=== PATIENT | female | born 1950 | race Caucasian/White ===

== ENCOUNTER 2023-01-08 10:12 | Observation (INO) | payer OTHER, MEDICAID ==
[2023-01-08] MEDS ORDERED: Ondansetron PF 4 MG/2 ML Vial ONE (12:03)
[2023-01-08] MEDS ORDERED: Morphine 4 MG/ML VIAL ONE (12:03)
[2023-01-08 12:30] LABS: #Eosinphils 0.3 thou/uL (0.0-0.7); #Monocytes 0.7 thou/uL (0.11-0.59); #Neutrophils 3.7 thou/uL (1.40-6.50); %Basophils 0.3 % (0.0-1.0); %Eosinophils 3.5 % (0.0-10.0); %Lymphocytes 39.7 % (21.0-51.0); %Neutrophils 47.1 % (42.0-75.0); Hemoglobin 11.6 g/dL (12.0-16.0); Mean Corpuscular HGB CONC 33.1 g/dL (32.0-36.0); Mean Corpuscular Hemoglobin 31.8 pg (27.0-31.0); Mean Corpuscular Volume 95.9 fl (78.0-98.0); Mean Platelet Volume 10.7 fL (7.4-10.4); Platelet Count 328 10x3/uL (130-400); RBC Distribution Width 15.6 % (11.5-14.5); Red Blood Cell (RBC) Count 3.65 mill/uL (4.20-5.40); White Blood Cell (WBC) Count 7.9 10x3/uL (4.8-10.8)
[2023-01-08 12:38] LABS: Bacteria/HPF 3+ HPF (None Seen); Bilirubin Negative (Negative); Blood, Urine Negative (Negative); CAUTI Indications for Culture Dysuria,urgency,freq; Calcium Oxalate Crystals 1+ HPF (None Seen); Clarity Turbid (Clear); Glucose, Urine (Dipstick) Normal (Negative); Ketone, Urine Negative (Negative); Leukocyte 250 Leu/uL (Negative); Nitrite Negative (Negative); Protein, Urine (Dipstick) 200 mg/dL (Neg-Trace); Squamous Epithelial 0-3 HPF (0-3); Urobilinogen Normal mg/dL (Less than 2); WBC/HPF 21-50 HPF (0-3)
[2023-01-08 12:42] LABS: Urine Culture Reflex Yes Yes
[2023-01-08 12:54] LABS: ALT (SGPT) 11 U/L (8-55); AST (SGOT) 18 U/L (5-34); Albumin 3.8 g/dL (3.4-4.8); Alkaline Phosphatase 63 U/L (40-110); Anion Gap 15 mmol/L (10-20); BUN (Urea Nitrogen) 10 mg/dL (9.8-20.1); Bilirubin, Total 0.3 mg/dL (0.2-1.2); CK (CPK) 39 U/L (29-168); Calc. Creatinine Clearance 0 mL/min (70-130); Calcium 11.6 mg/dL (7.8-10.44); Carbon Dioxide 24 mmol/L (23-31); Chloride 104 mmol/L (98-107); Estimated GFR 90; Glucose 102 mg/dL (83-110); Lipase 7 U/L (8-78); Potassium 3.9 mmol/L (3.5-5.1); Protein, Total 5.8 g/dL (5.8-8.1); Sodium 139 mmol/L (136-145)
[2023-01-08] MEDS ORDERED: cefTRIAXone (ROCEPHIN) 1 GM VIAL ONE (13:13)
[2023-01-08 17:15] VITALS: BMI 21.2
[2023-01-08] MEDS ORDERED: Ondansetron ODT 4 MG TAB SL PRN (17:30)
[2023-01-08] MEDS ORDERED: Ondansetron PF 4 MG/2 ML Vial IVP PRN (17:30)
[2023-01-08] MEDS: Sodium Chloride 0.9% 1,000 ML IV SCH (17:36)
[2023-01-08] MEDS ORDERED: Acetaminophen 650 MG Suppository PR PRN (17:41)
[2023-01-08] MEDS ORDERED: Artificial Tear Sol 15 ML BOT EA EYE PRN (17:41)
[2023-01-08] MEDS ORDERED: Moisturizing Cream (Eucerin) 113 GM JAR TOP PRN (17:41)
[2023-01-08] MEDS ORDERED: Electrolyte Replacement Protocol FS SCH (17:45)
[2023-01-08] MEDS ORDERED: cefTRIAXone\\ROCEPHIN 1 GM in Sodium Chloride 0.9% 100 ML IVPB SCH (18:00)
[2023-01-08 19:17] LABS: Magnesium 1.2 mg/dL (1.6-2.6); Phosphorus 3.3 mg/dL (2.3-4.7)
[2023-01-08] MEDS ORDERED: Cholecalciferol 1,000 UNITS (25 MCG) TAB PO SCH (21:00)
[2023-01-08] MEDS: Acetaminophen 325 MG TAB PO PRN (21:39)
[2023-01-09] MEDS: Acetaminophen 325 MG TAB PO PRN (04:41)
[2023-01-09] MEDS: Sodium Chloride 0.9% 1,000 ML IV SCH (04:42)
[2023-01-09 07:13] LABS: Iron 43 ug/dL (50-170); Iron Binding Capacity, Total 239 mcg/dL (265-497)
[2023-01-09 07:24] LABS: ALT (SGPT) 9 U/L (8-55); AST (SGOT) 20 U/L (5-34); Albumin 3.4 g/dL (3.4-4.8); Alkaline Phosphatase 55 U/L (40-110); Anion Gap 14 mmol/L (10-20); BUN (Urea Nitrogen) 8 mg/dL (9.8-20.1); Bilirubin, Total 0.3 mg/dL (0.2-1.2); Calc. Creatinine Clearance 63 mL/min (70-130); Calcium 10.7 mg/dL (7.8-10.44); Carbon Dioxide 25 mmol/L (23-31); Chloride 106 mmol/L (98-107); Estimated GFR 90; Globulin 2.2 g/dL (2.4-3.5); Glucose 97 mg/dL (83-110); Iron 39 ug/dL (50-170); Iron Binding Capacity, Total 245 mcg/dL (265-497); Potassium 3.8 mmol/L (3.5-5.1); Protein, Total 5.6 g/dL (5.8-8.1); Sodium 141 mmol/L (136-145)
[2023-01-09] MEDS ORDERED: Magnesium Sulfate In Water 4 GM in Premix Bag 1 BAG IVPB SCH (08:00)
[2023-01-09 10:01] LABS: Magnesium 1.2 mg/dL (1.6-2.6)
[2023-01-09 15:48] VITALS: BP 100/64; TEMP 97.8
[2023-01-09] MEDS ORDERED: Cefdinir 300 MG CAP PO SCH (21:00)
== END 2023-01-09 18:17 | disposition home or self-care (01) ==
LOC: ERS 10:12 → ERHOLD 14:30 → T4-A 16:54
PROVIDERS: ADMIT Family Medicine; ATTEND Emergency Medicine
DX: R53.1 Weakness (principal); E83.52 Hypercalcemia; D64.9 Anemia, unspecified
CPT/HCPCS: 71045; 72131; 74246; 80053; 81001; 82550; 83540; 83550; 83605; 83690; 83735 ×2; 83880; 83970; 84100; 84484; 87040; 87077; 87086; 87186; 93005; 96365; 96372 ×2; 96375 ×2; 96376; 99285; G0378 ×3; J3475; 36415; 84443; 85025; J0696; J1650; J2270; J2405; J3490; J7050

== ENCOUNTER → 2023-01-30 | Day surgery (SDC) | payer OTHER, MEDICAID ==
[2023-01-30 08:48] LABS: PTT 24.8 sec (22.9-36.1); Prothrombin Time 13.5 sec (12.0-14.7)
[2023-01-30 11:41] VITALS: BP 120/72; TEMP 97.4
[2023-02-09 11:23] LABS: Reference Lab Name NEO
== END ==
LOC: CT 08:10
PROVIDERS: ATTEND Internal Medicine
DX: C90.00 Multiple myeloma not having achieved remission (principal); C90.21 Extramedullary plasmacytoma in remission
CPT/HCPCS: 20225; 77002; 85097; 85610; 85730; 88184; 88237; 88264; 88280; 88305; 88311; 88313

== ENCOUNTER 2023-02-20 08:12 | Inpatient (IN) | payer OTHER, MEDICAID ==
[2023-02-20] MEDS ORDERED: NOREPINEPHRINE 8 MG/250 ML-D5W 250 ML ONE (08:15)
[2023-02-20] MEDS ORDERED: Rocuronium Bromide 10 MG/ML (10ML VIAL) ONE (08:19)
[2023-02-20 08:33] LABS: Hematocrit 29.5 % (36.0-47.0); Hemoglobin 8.8 g/dL (12.0-16.0); Mean Corpuscular HGB CONC 29.8 g/dL (32.0-36.0); Mean Corpuscular Volume 103.9 fl (78.0-98.0); Mean Platelet Volume 11.3 fL (7.4-10.4); Platelet Count 262 10x3/uL (130-400); RBC Distribution Width 15.1 % (11.5-14.5); Red Blood Cell (RBC) Count 2.84 mill/uL (4.20-5.40); White Blood Cell (WBC) Count 18.6 10x3/uL (4.8-10.8)
[2023-02-20 08:34] LABS: Delete Auto Diff?? YES; Manual Diff?? YES
[2023-02-20] MEDS ORDERED: ALTEPLASE 50 MG/50 ML VIAL ONE (08:40)
[2023-02-20] MEDS ORDERED: Heparin 25,000 units/D5W 500 ML ONE (08:59)
[2023-02-20 09:01] LABS: INR-International Normal Ratio 1.5; Prothrombin Time 18.9 sec (12.0-14.7)
[2023-02-20 09:02] LABS: PTT 29.3 sec (22.9-36.1)
[2023-02-20 09:03] LABS: ALT (SGPT) 26 U/L (8-55); AST (SGOT) 45 U/L (5-34); Albumin 2.4 g/dL (3.4-4.8); Alkaline Phosphatase 54 U/L (40-110); Anion Gap 26 mmol/L (10-20); BUN (Urea Nitrogen) 50 mg/dL (9.8-20.1); Bilirubin, Total 0.3 mg/dL (0.2-1.2); Calc. Creatinine Clearance 0 mL/min (70-130); Calcium 9.5 mg/dL (7.8-10.44); Carbon Dioxide 10 mmol/L (23-31); Chloride 104 mmol/L (98-107); Estimated GFR 20; Globulin 1.9 g/dL (2.4-3.5); Glucose 209 mg/dL (83-110); Protein, Total 4.3 g/dL (5.8-8.1); Sodium 136 mmol/L (136-145)
[2023-02-20 09:15] LABS: Analyzer IN Cardio ER; Calcium, Ionized (venous) 1.11 mmol/L (1.16-1.32); Chloride (VBG) 108 mmol/L (98-106); Hematocrit-VBG 24 % (36.0-47.0); Hemoglobin (Hb) 8.2 g/dL (11.7-16.1); Potassium (VBG) 3.12 mmol/L (3.70-5.30); Sodium 133.4 mmol/L (133-146)
[2023-02-20] MEDS ORDERED: Iopamidol-370 76% 500 ML MDV (1 ML CHARGE) ONE (09:27)
[2023-02-20] MEDS ORDERED: Sodium Chloride 0.9% 100 ML ONE (09:42)
[2023-02-20] MEDS ORDERED: cefTRIAXone (ROCEPHIN) 1 GM VIAL ONE (09:42)
[2023-02-20 09:48] LABS: Bilirubin Negative (Negative); Blood, Urine 2+ (Negative); CAUTI Indications for Culture Urological Procedure; Clarity Turbid (Clear); Glucose, Urine (Dipstick) Normal (Negative); Ketone, Urine Negative (Negative); Leukocyte Negative Leu/uL (Negative); Nitrite Negative (Negative); Protein, Urine (Dipstick) 200 mg/dL (Neg-Trace); Specific Gravity, Urine 1.018 (1.002-1.036); Urobilinogen Normal mg/dL (Less than 2); WBC/HPF 0-3 HPF (0-3); pH, Urine 5.5 (5.0-9.0)
[2023-02-20 09:51] LABS: Bacteria/HPF 2+ HPF (None Seen)
[2023-02-20 09:53] LABS: Urine Culture Reflex Yes Yes
[2023-02-20 10:05] LABS: Band 13 % (5-11); Hypochromia SLIGHT = 6-15 cells (100X) (0-5/hpf); Lymphocytes 65 % (21-51); Macrocytosis SLIGHT = 6-15 cells (100X) (0-5/hpf); Neutrophil 22 % (42-75); Polychromasia SLIGHT = 2-3 cells (100X) (0-2/hpf)
[2023-02-20 10:06] LABS: Platelet Adequacy Comment Appears Adequate
[2023-02-20] MEDS ORDERED: Pantoprazole 40 MG VIAL ONE (10:07)
[2023-02-20] MEDS ORDERED: Glucagon 1 MG/ML KIT IM PRN (10:12)
[2023-02-20] MEDS ORDERED: HumaLOG 300 UNITS/3 ML VIAL SC PRN ×2 (10:12)
[2023-02-20] MEDS ORDERED: Electrolyte Replacement Protocol 1 EACH IVPB ONE (10:12)
[2023-02-20] MEDS ORDERED: Dextrose 5% in Water 1,000 ML IV PRN (10:12)
[2023-02-20] MEDS ORDERED: Dextrose 50% Abboject 50 ML SYRINGE SLOW IVP PRN (10:12)
[2023-02-20] MEDS ORDERED: Acetaminophen 650 MG Suppository PR PRN ×2 (10:12)
[2023-02-20] MEDS ORDERED: Communication Order-Pharmacy FS ONE (10:12)
[2023-02-20] MEDS ORDERED: Ventilator Sedation Protocol 1 EACH FS SCH (10:15)
[2023-02-20] MEDS ORDERED: Heparin 25,000 units/D5W 500 ML IVPB SCH (10:15)
[2023-02-20] MEDS ORDERED: Heparin 10,000 UNITS/ 10 ML VIAL SLOW IVP SCH (10:15)
[2023-02-20] MEDS ORDERED: Sodium Bicarbonate 150 MEQ in Dextrose 5% in Water 1,000 ML IV SCH ×3 (10:30→20:15)
[2023-02-20 11:00] LABS: Hematocrit 31.4 % (36.0-47.0); Hemoglobin 9.5 g/dL (12.0-16.0); Platelet Count 291 10x3/uL (130-400)
[2023-02-20 11:12] LABS: SARS-CoV-2 NAA Rapid Test DETECTED (NotDetected)
[2023-02-20] MEDS ORDERED: Morphine 2 MG/ML VIAL SLOW IVP PRN (11:30)
[2023-02-20] MEDS ORDERED: Fentanyl CADD 100 ML IV SCH (11:30)
[2023-02-20] MEDS ORDERED: Fentanyl BOLUS 250 ML IVPB PRN (11:30)
[2023-02-20] MEDS ORDERED: Propofol 1,000 MG/100 ML VIAL IV PRN (11:30)
[2023-02-20] MEDS ORDERED: Propofol BOLUS 1,000 MG/100 ML VIAL IV PRN (11:30)
[2023-02-20] MEDS ORDERED: Lorazepam 2 MG/ML VIAL SLOW IVP PRN (11:30)
[2023-02-20 11:40] LABS: Lactic Acid 10.6 mmol/L (0.5-2.2)
[2023-02-20] MEDS ORDERED: Vecuronium 10 MG VIAL IV PRN (11:47)
[2023-02-20 11:48] LABS: Troponin I 1.162 ng/mL (< 0.028)
[2023-02-20 11:52] LABS: Carbon Dioxide 12 mmol/L (23-31); Chloride 103 mmol/L (98-107); Potassium 3.9 mmol/L (3.5-5.1); Sodium 134 mmol/L (136-145)
[2023-02-20 11:53] LABS: Anion Gap 23 mmol/L (10-20); BUN (Urea Nitrogen) 51 mg/dL (9.8-20.1); Calc. Creatinine Clearance 0 mL/min (70-130); Calcium 9.9 mg/dL (7.6-10.4); Estimated GFR 18; Glucose 143 mg/dL (83-110); Magnesium 1.3 mg/dL (1.6-2.6); Phosphorus 5.4 mg/dL (2.3-4.7)
[2023-02-20] MEDS ORDERED: Fentanyl CADD 100 ML ONE (12:14)
[2023-02-20 12:56] LABS: D-Dimer Test Greater than 20.00 *mcg/mL (0.27-0.43); INR-International Normal Ratio 1.3; PTT 35.3 sec (22.9-36.1); Protein C Activity 120 % (78-152); Prothrombin Time 16.4 sec (12.0-14.7)
[2023-02-20 13:18] LABS: Base Excess (BEa) -6.8 mEq/L (-2.0 to +3.0); Calcium, Ionized (arterial) 1.24 mmol/L (1.12-1.30); Carboxyhemoglobin (COHb) 0.9 gm% (0.0-3.0); Hematocrit-ABG 31 % (36.0-47.0); Hemoglobin (Hb) 10.7 g/dL (12.0-16.0); O2 Tension (PaO2), arterial 175.8 mmHg (> 70.0); Potassium - ABG Lab 4.08 mmol/L (3.70-5.30); pH, Arterial 7.434 (7.35-7.45)
[2023-02-20 13:21] LABS: CO2 Tension 24.4 mmHg (35.0-45.0); Puncture Site RRA
[2023-02-20] MEDS: Sodium Bicarbonate 150 MEQ in Dextrose 5% in Water 1,000 ML IV SCH ×2 (13:55→18:33)
[2023-02-20 15:57] LABS: Troponin I 4.932 ng/mL (< 0.028)
[2023-02-20 16:13] LABS: Strep pneumo Urine Ag NEGATIVE (NEGATIVE)
[2023-02-20 17:37] LABS: Hematocrit 31.5 % (36.0-47.0); Hemoglobin 9.8 g/dL (12.0-16.0); Platelet Count 275 10x3/uL (130-400)
[2023-02-20 18:04] LABS: Anion Gap 25 mmol/L (10-20); BUN (Urea Nitrogen) 52 mg/dL (9.8-20.1); Calc. Creatinine Clearance 16 mL/min (70-130); Calcium 9.6 mg/dL (7.8-10.44); Carbon Dioxide 14 mmol/L (23-31); Chloride 98 mmol/L (98-107); Estimated GFR 18; Glucose 184 mg/dL (83-110); Potassium 4.6 mmol/L (3.5-5.1); Sodium 132 mmol/L (136-145)
[2023-02-20 19:45] LABS: Troponin I 6.728 ng/mL (< 0.028)
[2023-02-20] MEDS ORDERED: Sodium Bicarb 50 MEQ/50 ML Abboject 8.4% SYRINGE IVP SCH (20:15)
[2023-02-20] MEDS: Pantoprazole 40 MG VIAL IVP SCH (20:34)
[2023-02-20] MEDS: NOREPINEPHRINE 8 MG/250 ML-D5W 250 ML IVPB PRN (20:57)
[2023-02-20] MEDS ORDERED: Lactated Ringer's 500 ML IV SCH (21:00)
[2023-02-20] MEDS: Albumin 25% 25 GM/100 ML BOT IVPB SCH (21:19)
[2023-02-20] MEDS ORDERED: Hydrocortisone Sod Succ/PF 100 mg/2 ml Vial IVP SCH (23:00)
[2023-02-20 23:13] LABS: Hematocrit 25.6 % (36.0-47.0); Hemoglobin 8.3 g/dL (12.0-16.0); Mean Corpuscular HGB CONC 32.4 g/dL (32.0-36.0); Mean Corpuscular Hemoglobin 31.1 pg (27.0-31.0); Mean Platelet Volume 10.9 fL (7.4-10.4); Platelet Count 268 10x3/uL (130-400); RBC Distribution Width 15.4 % (11.5-14.5); Red Blood Cell (RBC) Count 2.67 mill/uL (4.20-5.40); White Blood Cell (WBC) Count 7.6 10x3/uL (4.8-10.8)
[2023-02-20 23:36] LABS: Anion Gap 30 mmol/L (10-20); BUN (Urea Nitrogen) 52 mg/dL (9.8-20.1); Calc. Creatinine Clearance 15 mL/min (70-130); Carbon Dioxide 14 mmol/L (23-31); Chloride 94 mmol/L (98-107); Estimated GFR 17; Glucose 128 mg/dL (83-110); Potassium 4.5 mmol/L (3.5-5.1); Sodium 133 mmol/L (136-145)
[2023-02-20 23:39] LABS: Mean Corpuscular Volume 95.9 fl (78.0-98.0)
[2023-02-20 23:49] LABS: Lactic Acid 15.2 mmol/L (0.5-2.2)
[2023-02-20 23:50] LABS: Troponin I 14.579 ng/mL (< 0.028)
[2023-02-20 23:57] LABS: PTT Greater than 250.0 sec (22.9-36.1)
[2023-02-21] MEDS ORDERED: Lactated Ringer's 1,000 ML IV SCH (00:15)
[2023-02-21] MEDS: NOREPINEPHRINE 8 MG/250 ML-D5W 250 ML IVPB PRN ×4 (01:02→12:11)
[2023-02-21 02:21] LABS: Hemoglobin 7.8 g/dL (12.0-16.0); Platelet Count 237 10x3/uL (130-400)
[2023-02-21 02:45] LABS: PTT 143.7 sec (22.9-36.1)
[2023-02-21] MEDS: Albumin 25% 25 GM/100 ML BOT IVPB SCH ×2 (02:58→11:17)
[2023-02-21] MEDS: Vasopressin 20 UNITS in Sodium Chloride 0.9% 50 ML IV PRN ×2 (04:23→07:45)
[2023-02-21 04:41] LABS: Hematocrit 25.2 % (36.0-47.0); Hemoglobin 7.9 g/dL (12.0-16.0); Mean Corpuscular HGB CONC 31.3 g/dL (32.0-36.0); Mean Corpuscular Hemoglobin 31.5 pg (27.0-31.0); Mean Platelet Volume 11.3 fL (7.4-10.4); Platelet Count 220 10x3/uL (130-400); RBC Distribution Width 15.9 % (11.5-14.5); Red Blood Cell (RBC) Count 2.51 mill/uL (4.20-5.40); White Blood Cell (WBC) Count 10.4 10x3/uL (4.8-10.8)
[2023-02-21 04:42] LABS: Mean Corpuscular Volume 100.4 fl (78.0-98.0)
[2023-02-21 04:43] LABS: Delete Auto Diff?? YES; Prothrombin Time 23.6 sec (12.0-14.7)
[2023-02-21 04:59] LABS: ALT (SGPT) 221 U/L (8-55); AST (SGOT) 544 U/L (5-34); Albumin 2.8 g/dL (3.4-4.8); Alkaline Phosphatase 46 U/L (40-110); Anion Gap 33 mmol/L (10-20); BUN (Urea Nitrogen) 50 mg/dL (9.8-20.1); Bilirubin, Total 0.5 mg/dL (0.2-1.2); Calc. Creatinine Clearance 14 mL/min (70-130); Calcium 8.8 mg/dL (7.8-10.44); Carbon Dioxide 13 mmol/L (23-31); Chloride 91 mmol/L (98-107); Estimated GFR 16; Globulin 1.7 g/dL (2.4-3.5); Glucose 123 mg/dL (83-110); Potassium 4.9 mmol/L (3.5-5.1); Protein, Total 4.5 g/dL (5.8-8.1); Sodium 132 mmol/L (136-145)
[2023-02-21 05:09] LABS: Lactic Acid 19.2 mmol/L (0.5-2.2)
[2023-02-21] MEDS ORDERED: Sodium Bicarb 50 MEQ/50 ML VIAL IVP SCH (05:15)
[2023-02-21] MEDS ORDERED: Piperacillin/Tazobactam 3.375 GM in Sodium Chloride 0.9% 100 ML IVPB SCH ×2 (05:30→10:00)
[2023-02-21] MEDS ORDERED: Hydrocortisone Sod Succ/PF 100 mg/2 ml Vial IVP SCH (06:00)
[2023-02-21 06:14] LABS: Hematocrit 23.2 % (36.0-47.0); Hemoglobin 7.2 g/dL (12.0-16.0); Platelet Count 180 10x3/uL (130-400)
[2023-02-21] MEDS ORDERED: EPINEPHrine 1 MG/10 ML Abboject SYRINGE ONE ×2 (06:17→06:21)
[2023-02-21 06:25] LABS: O2 Tension (PaO2), arterial 161.1 mmHg (> 70.0); pH, Arterial 7.209 (7.35-7.45)
[2023-02-21 06:26] LABS: Base Excess (BEa) -16.7 mEq/L (-2.0 to +3.0)
[2023-02-21 06:27] LABS: Carboxyhemoglobin (COHb) 1.3 gm% (0.0-3.0); Hematocrit-ABG 25 % (36.0-47.0); Hemoglobin (Hb) 8.6 g/dL (12.0-16.0)
[2023-02-21 06:29] LABS: Calcium, Ionized (arterial) 1.07 mmol/L (1.12-1.30); Potassium - ABG Lab 5.18 mmol/L (3.70-5.30); Puncture Site RRA
[2023-02-21] MEDS ORDERED: EPINEPHrine 4 MG in Dextrose 5% in Water 250 ML IVP SCH (07:30)
[2023-02-21] MEDS ORDERED: Vasopressin 20 UNITS, Admixture Fee 1 EACH in Sodium Chloride 0.9% 50 ML IV SCH (07:45)
[2023-02-21 08:05] LABS: Base Excess (BEa) -17.8 mEq/L (-2.0 to +3.0); Carboxyhemoglobin (COHb) 1.5 gm% (0.0-3.0); Hematocrit-ABG 23 % (36.0-47.0); Hemoglobin (Hb) 7.9 g/dL (12.0-16.0); O2 Tension (PaO2), arterial 383.7 mmHg (> 70.0); Potassium - ABG Lab 5.41 mmol/L (3.70-5.30)
[2023-02-21 08:08] LABS: Actual Bicarbonate (HCO3a) 8.6 mEq/L (22-28); CO2 Tension 22.4 mmHg (35.0-45.0); pH, Arterial 7.202 (7.35-7.45)
[2023-02-21 08:09] LABS: Puncture Site Arterial Line
[2023-02-21] MEDS ORDERED: VANCOMYCIN IVPB PRN (08:20)
[2023-02-21] MEDS ORDERED: Milrinone Lactate/D5W 20 MG in Premix Bag 1 BAG IVPB SCH (08:30)
[2023-02-21] MEDS ORDERED: Sodium Bicarbonate 140 MEQ in Dextrose 5% in Water 1,000 ML IV SCH ×2 (08:30→10:00)
[2023-02-21] MEDS ORDERED: VANCOMYCIN 1.25 GM/250 ML BAG 1.25 GM in Premix Bag 1 BAG IVPB SCH (08:45)
[2023-02-21] MEDS ORDERED: Vancomycin Dose by Levels Sliding Scale (Wt <71) FS SCH (08:45)
[2023-02-21] MEDS ORDERED: valACYclovir 500 MG TAB PO SCH (09:00)
[2023-02-21] MEDS ORDERED: cefTRIAXone\\ROCEPHIN 2 GM in Sodium Chloride 0.9% 100 ML IVPB SCH (09:00)
[2023-02-21 10:19] VITALS: BP 84/56
[2023-02-21] MEDS: Pantoprazole 40 MG VIAL IVP SCH (11:16)
[2023-02-21 11:42] LABS: CO2 Tension 24.8 mmHg (35.0-45.0)
[2023-02-21 11:43] LABS: Actual Bicarbonate (HCO3a) 9.7 mEq/L (22-28)
[2023-02-21 11:47] LABS: Actual Bicarbonate (HCO3v) 8.5 mEq/L (22-28); pH (venous) 7.018 (7.32-7.43)
[2023-02-21 12:48] VITALS: TEMP 97.5
[2023-02-21 13:13] LABS: Cardiolipin IgA Ab 0.6 APL-U/mL (<14 Negative); Cardiolipin IgG Ab 0.9 GPL-U/mL (<10 Negative); Cardiolipin IgM Ab Less than 0.9 MPL-U/mL (<10 Negative); EliA APS New Method **** NEW METHOD ****
[2023-02-21 13:26] VITALS: BMI 21.8
[2023-02-21 13:59] LABS: PTT Greater than 250.0 sec (22.9-36.1)
== END 2023-02-21 17:47 | disposition expired | DRG 871 ==
LOC: ERS 08:12 → CCU 09:59
PROVIDERS: ADMIT Family Medicine; ATTEND Family Medicine
PROC: 5A1935Z Respiratory Ventilation, Less than 24 Consecutive Hours (ICD-10-PCS; principal; 2023-02-20)
PROC: 5A12012 Performance of Cardiac Output, Single, Manual (ICD-10-PCS; 2023-02-20)
PROC: 0BH17EZ Insertion of Endotracheal Airway into Trachea, Via Natural or Artificial Opening (ICD-10-PCS; 2023-02-20)
PROC: 02HV33Z Insertion of Infusion Device into Superior Vena Cava, Percutaneous Approach (ICD-10-PCS; 2023-02-20)
PROC: B5181ZA Fluoroscopy of Superior Vena Cava using Low Osmolar Contrast, Guidance (ICD-10-PCS; 2023-02-20)
PROC: 8E0ZXY6 Isolation (ICD-10-PCS; 2023-02-20)
PROC: 0DH67UZ Insertion of Feeding Device into Stomach, Via Natural or Artificial Opening (ICD-10-PCS; 2023-02-20)
PROC: 4A043R1 Measurement of Venous Saturation, Peripheral, Percutaneous Approach (ICD-10-PCS; 2023-02-20)
PROC: 4A133R1 Monitoring of Arterial Saturation, Peripheral, Percutaneous Approach (ICD-10-PCS; 2023-02-20)
PROC: 3E0G76Z Introduction of Nutritional Substance into Upper GI, Via Natural or Artificial Opening (ICD-10-PCS; 2023-02-20)
PROC: 3E043XZ Introduction of Vasopressor into Central Vein, Percutaneous Approach (ICD-10-PCS; 2023-02-20)
PROC: 03HY32Z Insertion of Monitoring Device into Upper Artery, Percutaneous Approach (ICD-10-PCS; 2023-02-20)
PROC: 0T9B70Z Drainage of Bladder with Drainage Device, Via Natural or Artificial Opening (ICD-10-PCS; 2023-02-20)
PROC: 30233J1 Transfusion of Nonautologous Serum Albumin into Peripheral Vein, Percutaneous Approach (ICD-10-PCS; 2023-02-20)
PROC: 3E033XZ Introduction of Vasopressor into Peripheral Vein, Percutaneous Approach (ICD-10-PCS; 2023-02-21)
PROC: 04HY32Z Insertion of Monitoring Device into Lower Artery, Percutaneous Approach (ICD-10-PCS; 2023-02-21)
PROC: 4A133B1 Monitoring of Arterial Pressure, Peripheral, Percutaneous Approach (ICD-10-PCS; 2023-02-21)
PROC: 4A133J1 Monitoring of Arterial Pulse, Peripheral, Percutaneous Approach (ICD-10-PCS; 2023-02-21)
DX: A41.89 Other specified sepsis (principal); I21.A1 Myocardial infarction type 2; I26.99 Other pulmonary embolism without acute cor pulmonale; U07.1 COVID-19; J18.9 Pneumonia, unspecified organism; R65.21 Severe sepsis with septic shock; J96.01 Acute respiratory failure with hypoxia; N17.9 Acute kidney failure, unspecified; E87.20 Acidosis, unspecified; K92.1 Melena; C90.00 Multiple myeloma not having achieved remission; I47.1 Supraventricular tachycardia; C41.9 Malignant neoplasm of bone and articular cartilage, unspecified; I13.0 Hypertensive heart and chronic kidney disease with heart failure and stage 1 through stage 4 chronic kidney disease, or unspecified chronic kidney disease; Z66 Do not resuscitate; Z51.5 Encounter for palliative care; R19.7 Diarrhea, unspecified; D64.9 Anemia, unspecified; R57.0 Cardiogenic shock; I48.91 Unspecified atrial fibrillation; R00.1 Bradycardia, unspecified; K64.4 Residual hemorrhoidal skin tags; I50.810 Right heart failure, unspecified; N18.9 Chronic kidney disease, unspecified; I46.8 Cardiac arrest due to other underlying condition; E83.39 Other disorders of phosphorus metabolism; Z55.6 Problems related to health literacy; Z90.710 Acquired absence of both cervix and uterus; Z80.0 Family history of malignant neoplasm of digestive organs
CPT/HCPCS: 31500; 36415; 36416; 36556; 36600; 51702; 71045; 71275; 74177; 76770; 80053; 81001; 82550; 82805; 83090; 83605; 83735; 83880; 84100; 84145; 84443; 84484; 85014; 85018; 85025; 85049; 85300; 85303; 85305; 85307; 85379; 85598; 85610; 85730; 86147; 86850; 86900; 86901; 87040; 87070; 87076; 87086; 87205; 87449; 92950; 93005; 93010; 93306; 93970; 94002; 94003; 94760; 96361; 96365; 96374; 96375; C9113; J0171; J0696; J1644; J1720; J1815; J2060; J2260; J2543; J2997; J3010; J3370; J3490; J7070; J7120; P9047; Q9967